=== PATIENT | female | born 1965 | race Hispanic/Latino ===

== ENCOUNTER 2020-10-06 11:08 | Emergency (ER) | payer SELFPAY ==
[2020-10-06] MEDS ORDERED: MORPHINE 4 MG/ML SYR ONE (13:01)
[2020-10-06] MEDS ORDERED: DIAZEPAM 10 MG/2 ML INJ SYRINGE ONE (13:02)
[2020-10-06 13:19] LABS: Urine Blood Negative (Negative); Urine Glucose Negative (Negative); Urine Protein Negative (Negative); Urine pH 5.5 (5.0-7.0)
--- NOTE | 2020-10-06 15:08 | EDPHYS ---
Physician Documentation [facility] Name: Elizabeth Aguilar Age: 55 yrs Sex: Female : 1965 Arrival Date: 10/06/2020 Time: 11:12 Bed 5 Private MD: ED Physician Savanna Jacobson HPI: 10/06 12:10 This 55 yrs old Female presents to ER via Wheelchair with complaints of Back jmm Pain. 12:10 The patient presents with pain that is acute. The symptoms are located in the low back. jmm Onset: The symptoms/episode began/occurred acutely, today. The pain does not radiate. Associated signs and symptoms: Pertinent negatives: abdominal pain, fever, incontinence, nausea, numbness, tingling, urinary retention, vomiting, weakness. Modifying factors: The patient symptoms are alleviated by nothing, the patient symptoms are aggravated by movement. This is a 55 year old female with a history of colon cancer that presents to the ED with complaints of right lower back pain which began earlier this morning. Denies known injury. 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 Patient denies any bowel or bladder incontinence, numbness. Denies abdominal pain or dysuria. . Historical: - Allergies: 12:17 No Known Allergies; aa5 - PMHx: 12:17 Colon Cancer; aa5 - PSHx: 12:17 Colostomy; aa5 - Immunization history:: Adult Immunizations unknown. - Social history:: Smoking status: Patient denies any tobacco usage or history of. ROS: 12:10 Constitutional: Negative for fever, chills, and weight loss, Cardiovascular: Negative jmm for chest pain, palpitations, and edema, Respiratory: Negative for shortness of breath, cough, wheezing, and pleuritic chest pain. 12:10 Back: Positive for pain with movement. 12:10 All other systems are negative. Exam: 12:10 Head/Face: atraumatic. Eyes: EOMI, no conjunctival erythema appreciated ENT: Moist jmm Mucus Membranes Neck: Trachea midline, Supple Chest/axilla: Normal chest wall appearance and motion. Cardiovascular: Regular rate and rhythm. No edema appreciated Respiratory: Normal respirations, no respiratory distress appreciated Abdomen/GI: Non distended, soft 12:10 Skin: General appearance color normal MS/ Extremity: Moves all extremities, no obvious deformities appreciated, no edema noted to the lower extremities Neuro: Awake and alert, normal gait Psych: Behavior is normal, Mood is normal, Patient is cooperative and pleasant 12:10 Constitutional: The patient appears alert, awake, anxious, in obvious pain. 12:10 Back: muscle spasm, is appreciated in the right low back. Vital Signs: 12:04 BP 126 / 68; Pulse 60; Resp 18 S; Temp 98.0(TE); Pulse Ox 99% ; Pain 10/10; aa5 13:30 BP 128 / 65; Pulse 55; Resp 15; Pulse Ox 98% ; jl7 14:48 BP 117 / 55; Pulse 48; Resp 15; Pulse Ox 99% ; jl7 15:55 BP 129 / 49; Pulse 48; Resp 18 S; Pulse Ox 96% on R/A; aa5 19:45 Pulse 57; Resp 17; Pulse Ox 100% on R/A; jb4 MDM: 12:10 Patient medically screened. [facility] 15:06 Data reviewed: vital signs, nurses notes. Counseling: I had a detailed discussion with [facility] the patient and/or guardian regarding: the historical points, exam findings, and any diagnostic results supporting the discharge/admit diagnosis, lab results, the need for outpatient follow up, to return to the emergency department if symptoms worsen or persist or if there are any questions or concerns that arise at home. ED course: Pain decreased in the ED. Most likely due to spasm. I do no suspect cord compression, cauda equina, abscess. No abdominal pain, I do not suspect ureterolithiasis. . 10/06 13:18 Order name: Urine Dipstick-Ancillary; Complete Time: 13:21 [facility] 10/06 15:53 Order name: CT Stone Protocol; Complete Time: 16:30 [facility] 10/06 12:12 Order name: Saline Lock; Complete Time: 14:46 [facility] 10/06 12:18 Order name: Urine Dipstick-Ancillary (obtain specimen); Complete Time: 13:27 [facility] Administered Medications: 13:25 Drug: Valium (diazepam) 5 mg Route: IVP; Site: left antecubital; jl7 14:00 Follow up: Response: No adverse reaction; Pain is decreased [facility] 13:30 Drug: morphine 4 mg Route: IVP; Site: left antecubital; jl7 14:00 Follow up: Response: No adverse reaction; Pain is decreased jl7 15:47 Drug: Ketorolac 30 mg Route: IM; Site: right gluteus; aa5 15:58 Drug: Decadron - Dexamethasone 10 mg Route: IVP; Site: right antecubital; aa5 15:58 Drug: fentaNYL (PF) 75 mcg Route: IVP; Site: right antecubital; aa5 20:20 Drug: Broussard (HYDROcodone-acetaminophen) 10 mg-325 mg 1 tabs Route: PO; lp1 20:30 Follow up: Response: Medication administered at discharge. lp1 Disposition: 10/06/20 18:46 Discharged to Home. Impression: Low back pain, Muscle spasm of back. - Condition is Stable. - Discharge Instructions: Back Pain, Adult, Muscle Cramps and Spasms. - Prescriptions for Ibuprofen 800 mg Oral Tablet - take 1 tablet by ORAL route every 8 hours As needed take with food; 30 tablet. Zanaflex 4 mg Oral Tablet - take 1 tablet by ORAL route every 8 hours As needed; 20 tablet. - Medication Reconciliation Form, Thank You Letter, Antibiotic Education, Prescription Opioid Use form. - Follow up: Private Physician; When: 2 - 3 days; Reason: Recheck today's complaints, Continuance of care, Re-evaluation by your physician. Addendum: 10/10/2020 19:10 Co-signature as Attending Physician, Savanna Jacobson MD. m a2 Signatures: Dispatcher [employer] EDMS Nik Francois PA PA jmm Calderon, Audri, RN RN aa5 Anny Cutler RN RN lp1 Can Nava RN RN jl7 Savanna Jacobson MD MD in2 Don Nava, RN RN rr5 Corrections: (The following items were deleted from the chart) 10/06 15:48 15:07 10/06/2020 15:07 Discharged to Home. Impression: Low back pain. Condition is [facility] Stable. Forms are Medication Reconciliation Form, Thank You Letter, Antibiotic Education, Prescription Opioid Use. Follow up: Private Physician; When: 2 - 3 days; Reason: Recheck today's complaints, Continuance of care, Re-evaluation by your physician. arnulfo 20:22 18:46 10/06/2020 18:46 Discharged to Home. Impression: Low back pain; Muscle spasm of rr5 back. Condition is Stable. Prescriptions for Ibuprofen 800 mg Oral Tablet - take 1 tablet by ORAL route every 8 hours As needed take with food; 30 tablet, Zanaflex 4 mg Oral Tablet - take 1 tablet by ORAL route every 8 hours As needed; 20 tablet. and Forms are Medication Reconciliation Form, Thank You Letter, Antibiotic Education, Prescription Opioid Use. Follow up: Private Physician; When: 2 - 3 days; Reason: Recheck today's complaints, Continuance of care, Re-evaluation by your physician. lydia
--- NOTE | 2020-10-06 15:08 | ER ---
Nurse's Notes [facility] Name: Elizabeth Aguilar Age: 55 yrs Sex: Female : 1965 Arrival Date: 10/06/2020 Time: 11:12 Bed 5 Private MD: Diagnosis: Low back pain;Muscle spasm of back Presentation: 10/06 12:04 Chief complaint: Patient states: right low back pain that began today. Pt denies aa5 radiation. 12:04 Coronavirus screen: At this time, the client does not indicate any symptoms associated aa5 with coronavirus-19. Ebola Screen: No symptoms or risks identified at this time. Initial Sepsis Screen: Does the patient meet any 2 criteria? No. Patient's initial sepsis screen is negative. Does the patient have a suspected source of infection? No. Patient's initial sepsis screen is negative. Risk Assessment: Do you want to hurt yourself or someone else? Patient reports no desire to harm self or others. Onset of symptoms was October 06, 2020. 12:04 Acuity: TRISTA 3 aa5 12:04 Method Of Arrival: Wheelchair aa5 Historical: - Allergies: 12:17 No Known Allergies; aa5 - PMHx: 12:17 Colon Cancer; aa5 - PSHx: 12:17 Colostomy; aa5 - Immunization history:: Adult Immunizations unknown. - Social history:: Smoking status: Patient denies any tobacco usage or history of. Screenin:30 Abuse screen: Denies threats or abuse. Denies injuries from another. Nutritional jl7 screening: No deficits noted. Tuberculosis screening: No symptoms or risk factors identified. Fall Risk IV access (20 points). Total Dan Fall Scale indicates No Risk (0-24 pts). Assessment: 13:30 General: Appears in no apparent distress. uncomfortable, Behavior is calm, cooperative, jl7 appropriate for age. Pain: Complains of pain in right low back Pain currently is 10 out of 10 on a pain scale. Neuro: Level of Consciousness is awake, alert, obeys commands, Oriented to person, place, time, situation. Cardiovascular: Patient's skin is warm and dry. Respiratory: Airway is patent Respiratory effort is even, unlabored, Respiratory pattern is regular, symmetrical. Derm: Skin is pink, warm \\T\\ dry. Musculoskeletal: Reports pain in right low back. 14:30 Reassessment: Patient appears in no apparent distress at this time. Patient and/or jl7 family updated on plan of care and expected duration. Pain level reassessed. Patient is alert, oriented x 3, equal unlabored respirations, skin warm/dry/pink. Patient states feeling better. Patient states symptoms have improved. 15:42 Reassessment: To bedside to d/c pt home, IV dc'd, assisted pt up the bed and pt aa5 attempted to use bedside commode, pt reports back pain increased upon movement and states "I can't even sit on the commode because my back hurts too bad". PA was notified and Toradol was ordered. . 15:45 Reassessment: Patient is alert, oriented x 3, equal unlabored respirations, skin aa5 warm/dry/pink. Pt assisted back to bed. . 19:10 Reassessment: Patient appears in no apparent distress at this time. Patient and/or jb4 family updated on plan of care and expected duration. Pain level reassessed. Patient is alert, oriented x 3, equal unlabored respirations, skin warm/dry/pink. 20:12 Reassessment: Assisted patient with getting dressed for discharge, moving slowly to lp1 standing position, states pain to lower back, requesting pain relief; Provider notified, verbal order from ALYX Zaragoza for Amboy 10mg-325 PO now. 20:31 Reassessment: Discharge instructions discussed, patient demonstrates understanding, lp1 Christopher Charge Nurse at bedside to discuss discharge papers. Vital Signs: 12:04 BP 126 / 68; Pulse 60; Resp 18 S; Temp 98.0(TE); Pulse Ox 99% ; Pain 10/10; aa5 13:30 BP 128 / 65; Pulse 55; Resp 15; Pulse Ox 98% ; jl7 14:48 BP 117 / 55; Pulse 48; Resp 15; Pulse Ox 99% ; jl7 15:55 BP 129 / 49; Pulse 48; Resp 18 S; Pulse Ox 96% on R/A; aa5 19:45 Pulse 57; Resp 17; Pulse Ox 100% on R/A; jb4 ED Course: 11:12 Patient arrived in ED. ds1 12:04 Arm band placed on. aa5 12:05 Nik Francois PA is PHCP. jmm 12:05 Savanna Jacobson MD is Attending Physician. jmm 12:16 Triage completed. aa5 12:41 Can Nava, JAVIER is Primary Nurse. jl7 13:26 Patient has correct armband on for positive identification. Placed in gown. Bed in low mh5 position. Call light in reach. Side rails up X2. Warm blanket given. Pulse ox on. NIBP on. 13:26 Urine collected: straight cath specimen, clear. Straight cath inserted, using sterile mh5 technique, 16 Fr. Specimen obtained. 13:40 Inserted saline lock: 20 gauge in left antecubital area, using aseptic technique. jl7 15:30 IV discontinued, intact, bleeding controlled, No redness/swelling at site. Pressure aa5 dressing applied. 15:58 Inserted saline lock: 22 gauge in right antecubital area, using aseptic technique. IV aa5 inserted by SRI Guthrie. 16:11 CT Stone Protocol In Process Unspecified. EDMS 19:45 No provider procedures requiring assistance completed. IV discontinued, intact, rr5 bleeding controlled, No redness/swelling at site. Pressure dressing applied. Administered Medications: 13:25 Drug: Valium (diazepam) 5 mg Route: IVP; Site: left antecubital; jl7 14:00 Follow up: Response: No adverse reaction; Pain is decreased jl7 13:30 Drug: morphine 4 mg Route: IVP; Site: left antecubital; jl7 14:00 Follow up: Response: No adverse reaction; Pain is decreased jl7 15:47 Drug: Ketorolac 30 mg Route: IM; Site: right gluteus; aa5 15:58 Drug: Decadron - Dexamethasone 10 mg Route: IVP; Site: right antecubital; aa5 15:58 Drug: fentaNYL (PF) 75 mcg Route: IVP; Site: right antecubital; aa5 20:20 Drug: Amboy (HYDROcodone-acetaminophen) 10 mg-325 mg 1 tabs Route: PO; lp1 20:30 Follow up: Response: Medication administered at discharge. lp1 Outcome: 15:07 Discharge ordered by . lydia 18:46 Discharge ordered by . lydia 20:22 Patient left the ED. rr5 20:22 Discharged to home via wheelchair, with family. jb4 20:22 Condition: stable 20:22 Discharge instructions given to patient, Instructed on discharge instructions, follow up and referral plans. medication usage, Demonstrated understanding of instructions, follow-up care, medications, Prescriptions given X 2. Signatures: Dispatcher [employer] Nik Henry PA PA jmm Sanford, Demi ds1 Peggy Asencio, RN RN aa5 Anny Cutler RN RN lp1 Jose Juan Jones RN RN jb4 Britney Meehan [facility] Can Nava RN RN jl7 oDn Nava RN RN rr5 Corrections: (The following items were deleted from the chart) 20:33 19:10 Reassessment: Patient appears in no apparent distress at this time. Patient jb4 and/or family updated on plan of care and expected duration. Pain level reassessed. Patient is alert, oriented x 3, equal unlabored respirations, skin warm/dry/pink. rr5 20:34 19:45 Pulse 57bpm; Resp 17bpm; Pulse Ox 100% RA; rr5 jb4 20:34 20:22 Discharged to home via wheelchair, with family, rr5 jb4 20:34 20:22 Condition: stable rr5 jb4 20:34 20:22 Discharge instructions given to patient, Instructed on discharge instructions, jb4 follow up and referral plans. no driving heavy equipment, Demonstrated understanding of instructions, follow-up care, medications, Prescriptions given X 2, rr5
[2020-10-06] MEDS ORDERED: KETOROLAC 30 MG/ML INJ ONE (16:00)
[2020-10-06] MEDS ORDERED: FENTANYL CITR 100 MCG/2 ML ONE (16:08)
[2020-10-06] MEDS ORDERED: dexAMETHasone 10 MG/ML VIAL ONE (16:08)
--- NOTE | 2020-10-06 16:29 | RAD REPORT ---
EXAM DESCRIPTION: CT - Stone Protocol - 10/06/2020 4:11 pm CLINICAL HISTORY: Flank pain. back pain COMPARISON: No comparisons TECHNIQUE: Axial images were obtained without oral or IV contrast. Lack of contrast limits solid org an and vascular assessment. The [id number] spans the entirety of the system partially obscuring uppermost abdomen and lung bases. Coronal reformatted images were obtained and reviewed. All CT scans are performed using dose optimization technique as appropriate and may include automated exposure control or mA/KV adjustment according to patient size. FINDINGS: The lower lung roberts are clear. Small gallstones. Imaged portions of the liver and spleen show no suspicious findings on non-contrast imaging. The panc reas and adrenal glands are normal. No pathologic lymphadenopathy in the abdomen or pelvis. No urinary tract stones or obstructive uropathy. No bowel obstruction, free air, free fluid or abscess. The appendix is not identified as a discrete s tructure, however, no secondary findings of appendicitis are identified. Left lower quadrant ostomy s ite noted. No significant bony abnormality. IMPRESSION: No urinary tract stones or obstructive uropathy. Cholelithiasis.
[2020-10-06] MEDS ORDERED: HYDROCODONE/APAP 10/325 TAB ONE (20:33)
== END 2020-10-06 20:22 | disposition home or self-care (01) ==
LOC: ER 11:08
DX: M62.830 Muscle spasm of back (principal); Z85.038 Personal history of other malignant neoplasm of large intestine
CPT/HCPCS: 51702; 74176; 76377; 81003; 96372; 99284; J1100; J3010; J3360